=== PATIENT | male | born 1940 | race Caucasian/White ===

== ENCOUNTER 2018-04-25 22:01 | Emergency (ER) | payer MEDICARE ==
[~2018-04-25] VITALS: Ht 165.1 cm; Wt 61.2 kg
[2018-04-25] MEDS ORDERED: TAMS-3 PO (22:13)
[2018-04-25] MEDS ORDERED: FINASTERIDE (22:13)
[2018-04-25] MEDS ORDERED: BENAZEPRIL (22:13)
[2018-04-25] MEDS ORDERED: NEXIUM (22:13)
[2018-04-25] MEDS ORDERED: ROSUVASTATIN (22:14)
--- NOTE | 2018-04-25 22:17 | NUR ---
Dr. Elvis CABEZAS MD at bedside for MSE.
[2018-04-25] MEDS ORDERED: MECLIZINE HCL 25 MG TABLET ONE (22:29)
[2018-04-25] MEDS ORDERED: MECLIZINE HCL 25 MG TABLET PO ONE (22:30)
--- NOTE | 2018-04-25 22:49 | NUR ---
Labs drawn. EKG done. Urine sample collected, sent to lab. Pt went down to radiology dept for CT scan at this time.
[2018-04-25 22:53] LABS: *BILIRUBIN,URIN NEGATIVE (NEGATIVE); *BLOOD, URINE NEGATIVE (NEGATIVE); *CLARITY,URINE CLEAR (CLEAR); *COLOR,URINE YELLOW (YELLOW); *KETONES,URINE NEGATIVE (NEGATIVE); *PROTEIN,URINE NEGATIVE (NEGATIVE); *UROBILINOGEN,URINE 0.2 E.U./dl (NORMAL); LEUKOCYTE ESTERASE ,URINE NEGATIVE (NEGATIVE); NITRITE, URINE NEGATIVE (NEGATIVE); UGLUCOSE NEGATIVE (NEGATIVE)
[2018-04-25 22:54] LABS: CARBON DIOXIDE 28 mmol/L (21-32); CHLORIDE 105 mmol/L (98-107); CREATININE 0.7 mg/dL (0.6-1.3); GLUCOSE 124 mg/dL (74-106); POTASSIUM 3.9 mmol/L (3.5-5.1); UREA NITROGEN, BLOOD 13 mg/dL (7-18)
[2018-04-25 22:55] LABS: BASOPHILS % (AUTO) 0.5 % (0.0-2.0); EOSINOPHILS # (AUTO) 0.2 K/uL (0.0-0.7); EOSINOPHILS % (AUTO) 2.7 % (0.0-7.0); HEMATOCRIT 42.4 % (36.7-47.1); HEMOGLOBIN 14.3 g/dL (12.5-16.3); LYMPHOCYTES % (AUTO) 33.7 % (20.5-51.5); MEAN CORPUSCULAR HEMOGLOBIN 31.3 uug (23.8-33.4); MEAN CORPUSCULAR HGB CONC 34 g/dL (32.5-36.3); MEAN CORPUSCULAR VOLUME 92.8 fL (73.0-96.2); MONOCYTES # (AUTO) 0.6 K/uL (2.0-10.0); MONOCYTES % (AUTO) 10.8 % (0.0-11.0); NEUTROPHILS % (AUTO) 52.3 % (38.5-71.5); PLATELET COUNT (AUTO) 157 K/uL (152-348); RED BLOOD CELL COUNT(AUTO) 4.58 MIL/uL (4.06-5.63); WHITE BLOOD COUNT (AUTO) 5.8 K/uL (3.6-10.2)
[2018-04-25 23:11] LABS: RBC,URINE NONE SEEN /HPF (0-3); WBC,URINE 0-3 /HPF (0-3)
[2018-04-25 23:12] LABS: BACTERIA,URINE NONE SEEN /HPF (NONE SEEN); SQUAMOUS EPITHELIAL CELL,UR FEW /HPF (NONE SEEN)
--- NOTE | 2018-04-25 23:29 | NUR ---
Patient discharged to home in stable conditon. Written and verbal after care instructions given. Patient verbalizes understanding of instructions. Pt ambulated out of ER in steady gait. All belongings with pt. VSS. NAD noted. Pt states he feels much better.
[2018-04-25 23:30] VITALS: BP 147/91
== END 2018-04-25 23:31 | disposition home or self-care (01) ==
LOC: ER 22:05
DX: H81.10 Benign paroxysmal vertigo, unspecified ear (principal); I10 Essential (primary) hypertension; K21.9 Gastro-esophageal reflux disease without esophagitis; Z88.0 Allergy status to penicillin; Z88.2 Allergy status to sulfonamides; Z90.89 Acquired absence of other organs
CPT/HCPCS: 36415; 70030-TC; 70450; 85025; 93005; A4663; J8597

== ENCOUNTER 2021-10-17 22:27 | Emergency (ER) | payer MEDICARE ==
[~2021-10-17] VITALS: Ht 170.2 cm; Wt 59.0 kg
[~2021-10-17 22:27] MED LIST: BENAZEPRIL; FINASTERIDE; NEXIUM; ROSUVASTATIN; TAMS-3 PO
--- NOTE | 2021-10-17 22:50 | NUR ---
PT AMBULATED TO ER C/O TAKING A DOUBLE DOSE OF HIS AMLODIPINE 10 MG. A/O X3, NO SOB OR LABORED BREATHING, AFEBBRILE. DENIES ANY GI/ DISTRESS. ALL PULSES PALPABLE. CLEAR SPEECH, COMPLETE SENTENCS. DENIES ANY QUIROZ/DIZZYNESS.
--- NOTE | 2021-10-17 23:50 | NUR ---
DR. CABELLO AT BEDSIDE, MSE IN PROGRESS.
--- NOTE | 2021-10-18 00:34 | NUR ---
CALLED [facility] SPOKE WITH MARY, ADVISED FOR PT TO BE MONITORED FOR 3 HOURS AND MONITOR FOR SYMPTOMS OF BRADYCARDIA AND HYPOTENSION, AND SYMPTOMS CONTINUE AFTER 3 HOURS TO CONTINUE MONITORING POT FOR A LONGER TIME FRAME.
--- NOTE | 2021-10-18 01:57 | NUR ---
PT IS RESTING COMFCORTABLY IN BED, EYES CLOSED, BREATHING EVEN AND UNLABORED.
--- NOTE | 2021-10-18 04:05 | NUR ---
Patient discharged to home in stable condition. Written and verbal after care instructions given. Patient verbalizes understanding of instructions. Stressed follow up or return to ER for worsening s/s. Steady gait, denies any pain/discomfort upon discharge. No QUIROZ/dizzyness.
[2021-10-18 04:09] VITALS: BP 150/76
== END 2021-10-18 04:09 | disposition home or self-care (01) ==
LOC: ER 22:47
DX: T46.1X1A Poisoning by calcium-channel blockers, accidental (unintentional), initial encounter (principal); Y92.89 Other specified places as the place of occurrence of the external cause; I10 Essential (primary) hypertension; Z95.5 Presence of coronary angioplasty implant and graft; Z88.0 Allergy status to penicillin; Z88.2 Allergy status to sulfonamides
CPT/HCPCS: A4663